=== PATIENT | male | born 1990 | race Caucasian/White ===

== ENCOUNTER 2018-06-13 17:51 | Emergency (ER) | payer SELFPAY ==
[2018-06-13] MEDS ORDERED: Diphtheria,Pertussis(Acell),Tetanus Vaccine 0.5 ML SDV IM ONE (18:14)
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
[2018-06-13] MEDS ORDERED: Bacitracin Oint 1 GM U/D Packet TOP ONE (18:52)
[2018-06-13] MEDS ORDERED: Ketorolac 30 MG/ML SDV IVPUSH ONE (19:23)
[2018-06-13] MEDS ORDERED: Cyclobenzaprine 10 MG Tab PO ONE (19:29)
[2018-06-13] MEDS ORDERED: Ketorolac 60 MG/2 ML SDV IM ONE (19:57)
--- NOTE | 2018-06-14 09:00 | CR ---
Lumbar Spine Min 4V HISTORY: Low back pain COMPARISON: None FINDINGS: Routine views of the lumbosacral spine reveal the vertebral bodies to be of normal height w ith adequate maintenance of the intervertebral disc spaces. There is no evidence of traumatic, neopla stic, or significant arthritic change. There is no evidence of spondylolysis or spondylolisthesis. IMPRESSION: Normal lumbar spine.
--- NOTE | 2018-06-14 09:01 | CR ---
Left shoulder and scapula There is normal alignment of the glenohumeral as well as AC joints. The shoulders intact. There is no evidence of injury to the scapula. The soft tissues are unremarkable. Impression: 1. Negative exam.
== END 2018-06-13 20:40 | disposition home or self-care (01) ==
LOC: JP.ED 17:51
DX: S80.212A Abrasion, left knee, initial encounter (principal); F10.129 Alcohol abuse with intoxication, unspecified; R94.5 Abnormal results of liver function studies; Z23 Encounter for immunization; V47.5XXA Car driver injured in collision with fixed or stationary object in traffic accident, initial encounter; Y90.8 Blood alcohol level of 240 mg/100 ml or more
CPT/HCPCS: 36415; 72110; 73010; 73030; 80053; 80305; 81001; 85025; 90471; 90715; 96372; 96374; 99284; A9270; G0480; J1885